=== PATIENT | female | born 1970 | race Hispanic/Latino ===

== ENCOUNTER 2018-08-18 07:58 | Outpatient (CLI) | payer MEDICAID ==
[2018-08-18] MEDS ORDERED: Iopamidol 300 61% 100 ML VIAL FS ONE (09:00)
--- NOTE | 2018-08-18 10:27 | CT ---
CT CHEST AND ABDOMEN AND PELVIS WITH IV CONTRAST: 08/18/2018 PROVIDED CLINICAL HISTORY: Cervical cancer. COMPARISON: None. FINDINGS: CHEST: The heart, pericardium, and great vessels demonstrate an unremarkable CT appearance. There i s no evidence for thoracic lymph node enlargement. The lungs are free of significant opacity. No pl eural fluid or pneumothorax apparent. The airway appears patent and of normal caliber. ABDOMEN: Multiple subcentimeter, hypodense foci are seen involving the liver and each kidney, too sm all to definitively characterize, but statistically reflecting cysts. The small, subcapsular, hypode nse focus is also noted involving the lateral margin of the spleen, in the craniocaudal mid portion, measuring less than a centimeter and too small to definitively characterize, but possibly also reflec ting a cyst. The pancreas and adrenal glands appear unremarkable. Lack of enteric contrast material and paucity of visceral fat limits evaluation. There is no bowel d ilatation, inflammatory fat stranding, free fluid, or lymph node enlargement apparent within the abdo men. PELVIS: Lack of enteric contrast and paucity of visceral fat limit evaluation. The urinary bladder appears grossly unremarkable. Nonspecific, somewhat heterogeneous attenuation within the central asp ects of the uterus. There is poor definition to the pericervical fat. No free fluid or lymph node e nlargement is evident. The osseous structures demonstrate no concerning lytic or blastic lesions. IMPRESSION: 1. No definite CT evidence for metastatic disease, with limitations as above. 2. Small foci of diminished attenuation involving the liver, kidneys, and spleen, too small to defin itively characterize but statistically reflecting cysts. Consider followup as indicated. POS: [facility]
== END 2018-08-18 07:59 | disposition home or self-care (01) ==
LOC: SCSCT 07:58
DX: C53.9 Malignant neoplasm of cervix uteri, unspecified (principal); R93.421 Abnormal radiologic findings on diagnostic imaging of right kidney; R93.422 Abnormal radiologic findings on diagnostic imaging of left kidney; R93.2 Abnormal findings on diagnostic imaging of liver and biliary tract; R93.3 Abnormal findings on diagnostic imaging of other parts of digestive tract
CPT/HCPCS: 71260; 74177; Q9967

== ENCOUNTER 2022-02-27 09:29 | Outpatient (CLI) | payer MEDICAID | END 2022-02-27 09:30 | disposition home or self-care (01) | LOC: BICMAMMO 09:29 | PROVIDERS: ATTEND Family Medicine | DX: R92.8 Other abnormal and inconclusive findings on diagnostic imaging of breast (principal); N60.02 Solitary cyst of left breast | CPT/HCPCS: 77066; G0279 ==

== ENCOUNTER 2024-01-03 08:13 | Emergency (ER) | payer OTHER, SELFPAY ==
[2024-01-03] MEDS ORDERED: Ketorolac Tromethamine 30 MG (1 mL) VIAL ONE (08:45)
== END 2024-01-03 08:58 | disposition home or self-care (01) ==
LOC: ERS 08:13
DX: K04.7 Periapical abscess without sinus (principal); K02.9 Dental caries, unspecified
CPT/HCPCS: 96372; 99282; J1885